=== PATIENT | male | born 1955 | race Caucasian/White ===

== ENCOUNTER 2018-08-27 16:05 | Emergency (ER) | payer OTHER ==
[~2018-08-27] VITALS: Ht 172.7 cm; Wt 81.0 kg
[2018-08-27 16:16] VITALS: BP 150/103
[2018-08-27 17:53] LABS: BASOPHILS % 0.4 % (0.0-2.0); EOSINOPHILS % 1.3 % (0.0-5.0); HEMATOCRIT. 49.3 % (42.0-52.0); HEMOGLOBIN. 16.6 g/dL (14.0-18.0); LYMPHOCYTES % 26.7 % (20.0-50.0); MEAN CORPUSCULAR HEMOGLOBIN 32.5 pg (28.0-32.0); MEAN CORPUSCULAR VOLUME 96.3 fL (80.0-94.0); MEAN PLATELET VOLUME 8.1 fl (7.4-10.4); MONOCYTES % 6.5 % (2.0-8.0); NEUTROPHILS % 65.1 % (40.0-76.0); PLATELET 224 x1000/uL (130-400); RED BLOOD CELL COUNT 5.12 mill/uL (4.7-6.1); RED CELL DISTRIBUTION WIDTH 14.3 % (11.6-14.6)
[2018-08-27 18:02] LABS: CHLORIDE 103 mEq/L (98-107)
[2018-08-27 18:05] LABS: ETHANOL BLOOD 269 mg/dL
== END 2018-08-27 19:31 | disposition left against medical advice (07) ==
LOC: ER 16:05
DX: F10.129 Alcohol abuse with intoxication, unspecified (principal); R45.851 Suicidal ideations
CPT/HCPCS: 36415; 80307; 80329; 99284

== ENCOUNTER 2021-10-12 17:33 | Emergency (ER) | payer OTHER, MEDICAID ==
[~2021-10-12] VITALS: Ht 175.3 cm; Wt 86.0 kg
[2021-10-12] MEDS ORDERED: FAMOTIDINE 20MG/2ML VIAL IV STA (18:29)
[2021-10-12] MEDS ORDERED: ONDANSETRON HCL 4MG/2ML INJ IV STA (18:29)
[2021-10-12] MEDS ORDERED: SODIUM CHLORIDE 0.9% 1,000 ML IV ONE (18:30)
[2021-10-12 18:49] LABS: BASOPHILS % 0.9 % (0.0-2.0); EOSINOPHILS % 0.5 % (0.0-5.0); HEMATOCRIT. 35.8 % (42.0-52.0); HEMOGLOBIN. 12.2 g/dL (14.0-18.0); LYMPHOCYTES % 15.4 % (20.0-50.0); MEAN CORPUSCULAR HEMOGLOBIN 31.1 pg (28.0-32.0); MEAN CORPUSCULAR VOLUME 91.1 fL (80.0-94.0); MEAN PLATELET VOLUME 7.3 fl (7.4-10.4); MONOCYTES % 7.9 % (2.0-8.0); NEUTROPHILS % 75.3 % (40.0-76.0); PLATELET 182 x1000/uL (130-400); RED BLOOD CELL COUNT 3.93 mill/uL (4.7-6.1); RED CELL DISTRIBUTION WIDTH 15.7 % (11.6-14.6)
[2021-10-12 18:54] LABS: CHLORIDE 97 mEq/L (98-107)
[2021-10-12] MEDS ORDERED: MAGNESIUM/ALUMINUM HYDROXIDE/SIMETHICONE 30ML UDC PO STA (19:51)
[2021-10-12] MEDS ORDERED: ACETAMINOPHEN 325MG TABLET PO STA (19:51)
[2021-10-12] MEDS ORDERED: MAG355OR21 MT (21:14)
[2021-10-13 00:25] VITALS: BP 146/78
== END 2021-10-13 00:27 | disposition home or self-care (01) ==
LOC: ER 17:33
DX: R10.13 Epigastric pain (principal); R11.2 Nausea with vomiting, unspecified; F10.229 Alcohol dependence with intoxication, unspecified; Y90.0 Blood alcohol level of less than 20 mg/100 ml; I10 Essential (primary) hypertension
CPT/HCPCS: 36415; 80053; 83690; 85025; 93005; 96361; 96374; 96375; 99284; J2405; J7030

== ENCOUNTER 2022-04-20 09:26 | Emergency (ER) | payer OTHER, MEDICAID ==
[~2022-04-20] VITALS: Ht 175.3 cm; Wt 76.0 kg
[~2022-04-20 09:26] MED LIST: MAG355OR21 MT
[2022-04-20] MEDS ORDERED: SODIUM CHLORIDE 0.9% 1,000 ML IV ONE (10:00)
[2022-04-20 11:28] LABS: BASOPHILS % 0.5 % (0.0-2.0); EOSINOPHILS % 0.8 % (0.0-5.0); HEMATOCRIT. 42.6 % (42.0-52.0); HEMOGLOBIN. 14.7 g/dL (14.0-18.0); LYMPHOCYTES % 35.3 % (20.0-50.0); MEAN CORPUSCULAR HEMOGLOBIN 31.6 pg (28.0-32.0); MEAN CORPUSCULAR VOLUME 91.7 fL (80.0-94.0); MEAN PLATELET VOLUME 7.4 fl (7.4-10.4); MONOCYTES % 5.7 % (2.0-8.0); NEUTROPHILS % 57.7 % (40.0-76.0); PLATELET 248 x1000/uL (130-400); RED BLOOD CELL COUNT 4.65 mill/uL (4.7-6.1); RED CELL DISTRIBUTION WIDTH 16.1 % (11.6-14.6)
[2022-04-20 11:35] LABS: CHLORIDE 98 mEq/L (98-107)
[2022-04-20 12:12] LABS: ETHANOL BLOOD 294 mg/dL
[2022-04-20] MEDS ORDERED: MAGNESIUM/ALUMINUM HYDROXIDE/SIMETHICONE 30ML UDC PO NR (17:00)
[2022-04-20] MEDS ORDERED: ONDANSETRON 4MG ODT PO NR (17:00)
[2022-04-20] MEDS ORDERED: IBUPROFEN 600MG TABLET PO NR (17:00)
[2022-04-20 22:00] VITALS: BP 130/68
[2022-04-21] MEDS ORDERED: FAMO-135 MT (02:58)
[2022-04-21] MEDS ORDERED: ACET-2708 MT (02:58)
== END 2022-04-20 22:30 | disposition home or self-care (01) ==
LOC: ER 09:26
DX: G92.9 Unspecified toxic encephalopathy (principal); F10.229 Alcohol dependence with intoxication, unspecified; Y90.8 Blood alcohol level of 240 mg/100 ml or more; I10 Essential (primary) hypertension; F17.290 Nicotine dependence, other tobacco product, uncomplicated; F12.10 Cannabis abuse, uncomplicated
CPT/HCPCS: 36415; 70450; 80053; 80307; 80320; 80329; 85025; 93005; 96360; 99285; J7030; Q0162; G0480

== ENCOUNTER 2022-04-20 22:43 | Emergency (ER) | payer OTHER, MEDICAID ==
[~2022-04-20] VITALS: Ht 172.7 cm; Wt 93.6 kg
[2022-04-21] MEDS ORDERED: SODIUM CHLORIDE 0.9% 1,000 ML IV ONE (01:30)
[2022-04-21] MEDS ORDERED: CHLORDIAZEPOXIDE 25MG CAPSULE PO ONE (01:30)
[2022-04-21 01:39] LABS: BASOPHILS % 0.6 % (0.0-2.0); CHLORIDE 98 mEq/L (98-107); EOSINOPHILS % 0.7 % (0.0-5.0); HEMATOCRIT. 38.6 % (42.0-52.0); HEMOGLOBIN. 13.4 g/dL (14.0-18.0); LYMPHOCYTES % 15.4 % (20.0-50.0); MEAN CORPUSCULAR HEMOGLOBIN 31.1 pg (28.0-32.0); MEAN CORPUSCULAR VOLUME 89.7 fL (80.0-94.0); MONOCYTES % 5.8 % (2.0-8.0); NEUTROPHILS % 77.5 % (40.0-76.0); PLATELET 221 x1000/uL (130-400); RED BLOOD CELL COUNT 4.31 mill/uL (4.7-6.1); RED CELL DISTRIBUTION WIDTH 15.7 % (11.6-14.6)
[2022-04-21] MEDS ORDERED: FAMOTIDINE 20MG/2ML VIAL IV ONE (01:45)
[2022-04-21 01:47] LABS: ETHANOL BLOOD < 10 mg/dL
[2022-04-21 02:41] VITALS: BP 169/85
[2022-04-21] MEDS ORDERED: ACET-2708 MT (02:58)
[2022-04-21] MEDS ORDERED: FAMO-135 MT (02:58)
[2022-04-21] MEDS ORDERED: KETOROLAC 15MG/ML VIAL IV ONE (03:00)
[2022-04-21] MEDS ORDERED: ACETAMINOPHEN 500MG TABLET PO ONE (03:15)
== END 2022-04-21 03:54 | disposition home or self-care (01) ==
LOC: ER 22:43
DX: R10.9 Unspecified abdominal pain (principal); Z98.890 Other specified postprocedural states
CPT/HCPCS: 36415; 80053; 80320; 83690; 85025; 96361; 96374; 99283; J3490; J7030; G0480

== ENCOUNTER 2022-04-21 04:25 | Emergency (ER) | payer OTHER, MEDICAID ==
[~2022-04-21] VITALS: Ht 172.7 cm; Wt 94.1 kg
[~2022-04-21 04:25] MED LIST changes: +ACET-2708 MT; +FAMO-135 MT
[2022-04-21] MEDS ORDERED: MAGNESIUM/ALUMINUM HYDROXIDE/SIMETHICONE 30ML UDC PO ONE (05:30)
[2022-04-21 06:15] VITALS: BP 145/82
== END 2022-04-21 06:20 | disposition home or self-care (01) ==
LOC: ER 04:25
DX: R10.9 Unspecified abdominal pain (principal); Z74.1 Need for assistance with personal care; Z59.82 Transportation insecurity; Z98.890 Other specified postprocedural states
CPT/HCPCS: 99282

== ENCOUNTER 2022-04-21 07:27 | Emergency (ER) | payer OTHER, MEDICAID ==
[~2022-04-21] VITALS: Ht 172.7 cm; Wt 100.0 kg
[2022-04-21] MEDS ORDERED: MAGNESIUM/ALUMINUM HYDROXIDE/SIMETHICONE 30ML UDC PO ONE (08:30)
[2022-04-21 08:45] VITALS: BP 133/88
== END 2022-04-21 09:06 | disposition home or self-care (01) ==
LOC: ER 07:27
DX: F10.129 Alcohol abuse with intoxication, unspecified (principal); Y90.9 Presence of alcohol in blood, level not specified; Z59.00 Homelessness unspecified; I49.9 Cardiac arrhythmia, unspecified; Z98.890 Other specified postprocedural states
CPT/HCPCS: 93005; 99283

== ENCOUNTER 2022-06-08 12:48 | Emergency (ER) | payer OTHER, MEDICAID ==
[~2022-06-08] VITALS: Ht 177.8 cm; Wt 100.0 kg
[2022-06-08 16:12] LABS: BASOPHILS % 0.7 % (0.0-2.0); EOSINOPHILS % 3.7 % (0.0-5.0); HEMATOCRIT. 39.5 % (42.0-52.0); HEMOGLOBIN. 13.3 g/dL (14.0-18.0); LYMPHOCYTES % 60.4 % (20.0-50.0); MEAN CORPUSCULAR HEMOGLOBIN 31.3 pg (28.0-32.0); MEAN CORPUSCULAR VOLUME 92.8 fL (80.0-94.0); MEAN PLATELET VOLUME 7.8 fl (7.4-10.4); MONOCYTES % 6.4 % (2.0-8.0); NEUTROPHILS % 28.8 % (40.0-76.0); PLATELET 240 x1000/uL (130-400); RED BLOOD CELL COUNT 4.26 mill/uL (4.7-6.1); RED CELL DISTRIBUTION WIDTH 16.4 % (11.6-14.6)
[2022-06-08 16:23] LABS: CHLORIDE 115 mEq/L (98-107)
[2022-06-08 17:59] LABS: ETHANOL BLOOD 376 mg/dL
[2022-06-08] MEDS ORDERED: SODIUM CHLORIDE 0.9% 1,000 ML IV SCH (18:30)
[2022-06-08 22:00] VITALS: BP 148/93
== END 2022-06-08 22:15 | disposition home or self-care (01) ==
LOC: ER 13:31
DX: F10.229 Alcohol dependence with intoxication, unspecified (principal); Y90.8 Blood alcohol level of 240 mg/100 ml or more; R41.82 Altered mental status, unspecified; G92.9 Unspecified toxic encephalopathy
CPT/HCPCS: 36415; 71045; 80053; 80307; 80320; 80329; 82140; 82962; 84484; 85025; 93005; 99285; G0480

== ENCOUNTER 2024-04-28 19:25 | Inpatient (IN) | payer BC, MEDICAID, MEDICARE ==
[~2024-04-28] VITALS: Ht 172.7 cm; Wt 90.7 kg
[2024-04-28 20:44] LABS: CHLORIDE 101 mEq/L (98-107); POTASSIUM 3.5 mEq/L (3.5-5.1); SODIUM 135 mEq/L (136-145)
[2024-04-28 20:45] LABS: CARBON DIOXIDE 25 mEq/L (21-32)
[2024-04-28 20:46] LABS: CALCIUM 9.4 mg/dL (8.7-10.4)
[2024-04-28 20:50] LABS: GLUCOSE 103 mg/dL (70-105)
[2024-04-28 20:51] LABS: UREA NITROGEN BLOOD 10 mg/dL (9-23)
[2024-04-28 21:00] LABS: ETHANOL BLOOD 369 mg/dL (<10)
[2024-04-29 05:59] LABS: *AMPHETAMINES SCREEN URINE NEGATIVE (NEGATIVE)
[2024-04-29 06:00] LABS: *BARBITURATES SCREEN URINE NEGATIVE (NEGATIVE); *BENZODIAZEPINES SCREEN URINE NEGATIVE (NEGATIVE); *COCAINE SCREEN URINE NEGATIVE (NEGATIVE); CANNABINOID URINE SCREEN NEGATIVE (NEGATIVE); ECSTASY MDMA SCREEN URINE NEGATIVE (NEGATIVE); METHADONE URINE SCREEN NEGATIVE (NEGATIVE); OPIATES URINE SCREEN NEGATIVE (NEGATIVE); PHENCYCLIDINE URINE SCREEN NEGATIVE (NEGATIVE)
[2024-04-29 07:22] LABS: PHOSPHORUS 2.5 mg/dL (2.5-4.9)
[2024-04-29 08:00] VITALS: BP 161/93; PULSE 88; RESP 18; TEMP 36.50292; O2SAT 99
[2024-04-29] MEDS: THIAMINE HCL 100MG TABLET PO SCH (09:43)
[2024-04-29] MEDS: CLONIDINE 0.1MG TABLET PO PRN (09:44)
[2024-04-29] MEDS: FOLIC ACID 1MG TABLET PO SCH (09:44)
[2024-04-29] MEDS: DEXT 5%/0.45% NACL 1000ML 1,000 ML IV SCH (09:45)
[2024-04-29] MEDS ORDERED: VALS1TAB79 PO (10:04)
[2024-04-29] MEDS ORDERED: AMLO2.5T45 PO (10:04)
[2024-04-29] MEDS ORDERED: METO-385 PO (10:04)
[2024-04-29] MEDS ORDERED: SUCR1TAB PO (10:04)
[2024-04-29] MEDS ORDERED: ROSU40TA PO (10:04)
[2024-04-29] MEDS ORDERED: PANT40TA51 PO (10:04)
[2024-04-29 10:37] VITALS: BP 161/93; PULSE 88; RESP 18; TEMP 36.5292
[2024-04-29] MEDS: ACETAMINOPHEN 325MG TABLET PO PRN (10:44)
[2024-04-29 12:00] VITALS: BP 133/89; PULSE 101; RESP 18; TEMP 36.89184; O2SAT 98
[2024-04-29] MEDS: CHLORDIAZEPOXIDE 5 MG CAPSULE PO SCH (13:32)
[2024-04-29] MEDS: AMLODIPINE 5MG TABLET PO SCH (13:32)
[2024-04-29 13:47] LABS: BASOPHILS % 0.8 % (0.0-2.0); EOSINOPHILS % 3.9 % (0.0-5.0); HEMATOCRIT. 38.3 % (42.0-52.0); HEMOGLOBIN. 13.3 g/dL (14.0-18.0); LYMPHOCYTES % 29.5 % (20.0-50.0); MEAN CORPUSCULAR HEMOGLOBIN 32.8 pg (28.0-32.0); MEAN CORPUSCULAR HGB CONC 34.6 g/dL (31.0-37.0); MEAN CORPUSCULAR VOLUME 94.7 fL (80.0-94.0); MEAN PLATELET VOLUME 7.7 fl (7.4-10.4); MONOCYTES % 8.2 % (2.0-8.0); NEUTROPHILS % 57.6 % (40.0-76.0); PLATELET 194 x1000/uL (130-400); RED BLOOD CELL COUNT 4.05 mill/uL (4.7-6.1); RED CELL DISTRIBUTION WIDTH 14.7 % (11.6-14.6); WHITE BLOOD COUNT 5.2 x1000/uL (4.5-11.0)
[2024-04-29] MEDS: MAGNESIUM/ALUMINUM HYDROXIDE/SIMETHICONE 30ML UDC PO SCH (14:45)
[2024-04-29] MEDS: ENOXAPARIN 40MG/0.4ML SYR SUBCUT SCH (14:55)
[2024-04-29 16:00] VITALS: BP 178/100; PULSE 103; RESP 18; TEMP 36.55848; O2SAT 96
[2024-04-29 18:44] LABS: CARBON DIOXIDE 25 mEq/L (21-32); CHLORIDE 108 mEq/L (98-107); POTASSIUM 3.8 mEq/L (3.5-5.1); SODIUM 139 mEq/L (136-145)
[2024-04-29 18:45] LABS: CALCIUM 9.6 mg/dL (8.7-10.4)
[2024-04-29 18:49] LABS: CREATININE 0.9 mg/dL (0.6-1.3); GLUCOSE 109 mg/dL (70-105)
[2024-04-29 18:50] LABS: UREA NITROGEN BLOOD 15 mg/dL (9-23)
[2024-04-29 18:51] LABS: ALANINE AMINOTRANSFERASE 81 IU/L (10-49); ALBUMIN 4.5 g/dL (3.2-4.8); ASPARTATE AMINOTRANSFERASE 90 IU/L (<34)
[2024-04-29 18:52] LABS: BILIRUBIN DIRECT 0.2 mg/dL (<=3.0); BILIRUBIN TOTAL 0.7 mg/dL (0.1-1.0); PHOSPHORUS 2.3 mg/dL (2.5-4.9); PROTEIN TOTAL 7.3 g/dL (6.0-8.3)
[2024-04-29 20:00] VITALS: BP 144/84; PULSE 84; RESP 19; TEMP 36.22512; O2SAT 99
[2024-04-29] MEDS: ZOLPIDEM TARTRATE 5MG TABLET PO NR (22:29)
[2024-04-30] VITALS (7 sets, daily range): BP systolic 138–145; BP diastolic 81–99; PULSE 70–86; RESP 16–20; TEMP 36.3918–36.78072; O2SAT 95–99
[2024-04-30] MEDS: MAGNESIUM 2 G PREMIX 50 ML IV NR (00:18)
[2024-04-30] MEDS: DEXT 5% IV NR (01:24)
[2024-04-30] MEDS: SODIUM PHOSPHATE IV NR (01:24)
[2024-04-30] MEDS: WATER IV NR (01:24)
[2024-04-30 06:23] LABS: CHLORIDE 106 mEq/L (98-107); POTASSIUM 3.5 mEq/L (3.5-5.1); SODIUM 139 mEq/L (136-145)
[2024-04-30 06:26] LABS: CALCIUM 9.3 mg/dL (8.7-10.4); CARBON DIOXIDE 26 mEq/L (21-32)
[2024-04-30 06:31] LABS: CREATININE 0.9 mg/dL (0.6-1.3); UREA NITROGEN BLOOD 15 mg/dL (9-23)
[2024-04-30 06:32] LABS: GLUCOSE 115 mg/dL (70-105)
[2024-04-30 06:33] LABS: ALANINE AMINOTRANSFERASE 65 IU/L (10-49); ALBUMIN 4.2 g/dL (3.2-4.8); ASPARTATE AMINOTRANSFERASE 59 IU/L (<34)
[2024-04-30 06:35] LABS: BILIRUBIN DIRECT 0.2 mg/dL (<=3.0); BILIRUBIN TOTAL 0.7 mg/dL (0.1-1.0); PHOSPHORUS 2.6 mg/dL (2.5-4.9); PROTEIN TOTAL 6.8 g/dL (6.0-8.3)
[2024-04-30 07:18] LABS: BASOPHILS % 0.7 % (0.0-2.0); EOSINOPHILS % 4.9 % (0.0-5.0); HEMATOCRIT. 38.4 % (42.0-52.0); HEMOGLOBIN. 12.9 g/dL (14.0-18.0); LYMPHOCYTES % 36.3 % (20.0-50.0); MEAN CORPUSCULAR HEMOGLOBIN 31.9 pg (28.0-32.0); MEAN CORPUSCULAR HGB CONC 33.7 g/dL (31.0-37.0); MEAN CORPUSCULAR VOLUME 94.8 fL (80.0-94.0); MEAN PLATELET VOLUME 8.1 fl (7.4-10.4); MONOCYTES % 11.6 % (2.0-8.0); NEUTROPHILS % 46.5 % (40.0-76.0); PLATELET 176 x1000/uL (130-400); RED BLOOD CELL COUNT 4.05 mill/uL (4.7-6.1); WHITE BLOOD COUNT 5.1 x1000/uL (4.5-11.0)
[2024-04-30] MEDS: ONDANSETRON HCL 4MG/2ML INJ IV PRN (14:43)
[2024-04-30] MEDS: TEMAZEPAM 15MG CAPSULE PO PRN (23:53)
[2024-05-01] VITALS: BP 156/97; PULSE 86; RESP 18; TEMP 36.83628; O2SAT 99
[2024-05-01 04:00] VITALS: BP 145/92; PULSE 81; RESP 19; TEMP 36.44736; O2SAT 98
[2024-05-01 08:00] VITALS: BP 131/83; PULSE 76; RESP 18; TEMP 37.39188; O2SAT 96
[2024-05-01 12:00] VITALS: BP 149/84; PULSE 67; RESP 18; TEMP 36.50292; O2SAT 96
[2024-05-01 16:00] VITALS: BP 132/87; PULSE 73; RESP 20; TEMP 36.6696; O2SAT 99
[2024-05-01 20:00] VITALS: BP 142/78; PULSE 78; RESP 16; TEMP 36.72516; O2SAT 97
[2024-05-02 04:00] VITALS: BP 157/82; PULSE 64; RESP 18; TEMP 36.50292; O2SAT 98
[2024-05-02 08:00] VITALS: BP 162/83; PULSE 59; RESP 19; TEMP 36.50292; O2SAT 99
[2024-05-02 12:00] VITALS: BP 143/78; PULSE 68; RESP 19; TEMP 36.72516; O2SAT 98
[2024-05-02 16:10] VITALS: TEMP 98.1
== END 2024-05-02 16:15 | disposition home or self-care (01) | DRG 897 ==
LOC: ER 19:25 → 8WST 04-29 04:59 → EDBEDREQTM 04-29 05:00 → EDBEDREQ 04-29 05:00 → ER 04-29 07:47 → 6EST 05-01 12:55
PROVIDERS: ADMIT Internal Medicine; ATTEND Internal Medicine
DX: F10.129 Alcohol abuse with intoxication, unspecified (principal); Y90.8 Blood alcohol level of 240 mg/100 ml or more; Z86.73 Personal history of transient ischemic attack (TIA), and cerebral infarction without residual deficits; Z79.899 Other long term (current) drug therapy
CPT/HCPCS: 36415; 80048; 80076; 80305; 80320; 83735; 84100; 85025; 99285; J1650; J2405; J3475; J3490; J7060; G0480